=== PATIENT | male | born 1990 | race Caucasian/White ===

== ENCOUNTER 2025-03-01 13:51 | Emergency (ER) | payer OTHER, SELFPAY ==
[2025-03-01 13:55] VITALS: BP 149/100
[2025-03-01 14:24] LABS: % Basophils 0.8 % (0-2); % Eosinophils 3.2 % (0-6); % Immature Granulocytes 0.2 % (0-0.5); % Lymphocytes 30.8 % (20.5-51.1); % Monocytes 6.7 % (1.7-9.3); % Neutrophils 58.3 % (42.2-75.2); Absolute Basophils 0.1 10^3/uL (0-0.2); Absolute Eosinophils 0.3 10^3/uL (0-0.7); Absolute Lymphocytes 2.7 10^3/uL (1.2-3.4); Absolute Monocytes 0.6 10^3/uL (0.1-0.6); Hematocrit 41.7 % (39.0-52.0); Hemoglobin 14.4 g/dL (13.0-18.0); Mean Corp Hgb Conc. 34.5 g/dL (33.0-37.0); Mean Corpuscular Volume 86.9 fL (80.0-94.0); Mean Platelet Volume 9.6 fL (7.4-10.4); Nucleated Red Blood Cells % 0 % (-); Platelet Count 299 10^3/uL (130-400); Red Cell Dist. Width 12.5 % (11.5-14.5); White Blood Cell Count 8.6 10^3/uL (4.8-10.8)
[2025-03-01 14:49] LABS: ALT (SGPT) 25 U/L (0-50); AST (SGOT) 26 U/L (17-59); Albumin 4.7 g/dl (3.5-5.0); Alkaline Phosphatase 64 U/L (38-126); Blood Urea Nitrogen 21 mg/dl (9-20); Calcium 9.7 mg/dl (8.4-10.2); Carbon Dioxide 25 mmol/L (22-30); Chloride 110 mmol/L (98-107); Glucose 108 mg/dl (70-99); Potassium 4.4 mmol/L (3.5-5.1); Sodium 143 mmol/L (135-145); Total Bilirubin 1.1 mg/dl (0.2-1.3); Total Protein 7.5 g/dl (6.3-8.2); eGFR > 60.00
[2025-03-01 15:00] LABS: Troponin I < 0.012 ng/ml
--- NOTE | 2025-03-01 15:36 | ED.GENMED ---
History of Present Illness
General
Chief Complaint: Cardiac Symptoms
Source: patient
Time Seen by Provider: 03/01/25 15:19
History of Present Illness
History of Present Illness:
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 Last Monday, 8 days ago, he was laying sod described as approximately 70 pounds and heavy work. He woke on Monday with complaints of focal discomfort in
the anterior aspect of his left chest. He has taken Motrin which makes him feel somewhat better. He notes the pain is worse with deep cough, deep breath, and certain movements. He denies associated leg swelling, dyspnea, history of DVT him hit
him or family members, back pain, neck pain, abdominal pain, headache, dizziness, bleeding. He describes the pain as 'sharp'. He denies associated URI symptoms. Patient states he came in today because he read on the Internet that this could be
related to his heart and he got scared.
Past History
Past History
ED Past Medical History: None
ED Past Surgical History: None
Social History
Tobacco: Non-smoker
Alcohol: Occasional
Drug: None
Personal:
Employment: Employed
Phy Exam
Physical Exam
Physical Exam:
GENERAL: Alert , in no apparent distress
EYE: pupils equal and reactive
NECK: Supple, no significant adenopathy.
ENT: o/p clr, mmm.
CARDIAC: Regular rate and rhythm .
LUNGS: Clear breath sounds bilaterally, no acute respiratory distress, no wheezes/rales/rhonchi
ABDOMEN: Soft, without focal tenderness, no r/g, no cvat
NEUROLOGICAL: Alert and oriented, no focal neuro deficits
SKIN: Warm and dry, skin intact.
MUSCULOSKELETAL: No edema, well perfused.
PSYCH: Normal and appropriate interaction.
CHEST: focal ttp at one area approx rib 3/4 area ant chest wall left side
Course
Orders/Labs/Results
Orders:
Orders
03/01/25 13:52
EKG [Electrocardiogram (*1)] Urgent
Reason for Study: Chest Pain
EKG- Treatment ONCE
03/01/25 14:07
Complete Blood Count/With Diff Urgent
Comprehensive Metabolic Panel Urgent
Troponin I Urgent
03/01/25 15:32
Electrocardiogram (*1) Urgent
Reason for Study: Chest Pain
Cardiac Monitoring- Treatment ONCE
EKG- Treatment ONCE
Ketorolac [Toradol] 15 mg IM NOW STA
CR Chest - 2 Views Urgent
Comment:
Reason For Exam: cp
03/01/25 16:24
D-Dimer Stat
Abnormal Lab Results
03/01/25
14:07
Chloride 110 H mmol/L
(98-107)
BUN 21 H mg/dl
(9-20)
Glucose 108 H mg/dl
(70-99)
03/01/25 14:07
03/01/25 14:07
Vital Signs
Initial and Last Documented VS:
Initial Vital Signs
Temp Pulse Resp BP Pulse Ox
98.0 F 85 20 149/100 99
03/01/25 13:55 03/01/25 13:55 03/01/25 13:55 03/01/25 13:55 03/01/25 13:55
Last Documented Vital Signs
Temp Pulse Resp BP Pulse Ox
98.5 F 78 18 139/94 98
03/01/25 15:57 03/01/25 15:57 03/01/25 15:57 03/01/25 15:57 03/01/25 15:57
*Critical Care Note
Total Time (30-74mins, 75-104mins- exclusive of procedures): Not Applicable
Update Note
Update Note:
Patient presents to the Emergency Department with ___chest pain
Number and Complexity of Problems Addressed at the Encounter
� Chronic conditions affecting care:
� Acute Exacerbation and/or Progression of Chronic Illness:
� Differential Diagnosis includes: But not limited to pleurisy, ACS, PE, musculoskeletal strain, pneumothorax, etc. etc.
Amount and/or Complexity of Data to be Reviewed and Analyzed
� I performed an independent evaluation of and my interpretation is:
EKG: Read by me, normal sinus rhythm with sinus arrhythmia, no acute ischemia
CT:
Xrays: Chest x-ray read by me NAD
Laboratory Studies: Unremarkable, D-dimer normal, troponin normal
Other:
� Review of other/old records reveals:
� Clinical information was obtained by an independent historian: who is bedside
� Prescriptions/Medications Considered but not given:
� Further testing considered but not performed:
Risk of Complications and/or Morbidity or Mortality of Patient Management
� Social determinants of health affecting care:
� Discussion with other providers (PCP, Hospitalists, Consultants, etc):
� Escalation of care including admission/observation vs risk of discharge considered: Strongly suspect musculoskeletal etiology given unremarkable workup here. Discussed with patient portance of follow-up and reasons return to
the ER.
ED Attending Note
-
Portions of this chart may have been created with voice recognition software.� Occasional wrong word or��sound alike� substitutions may have occurred due to the inherent limitations of voice recognition software.
Discharge Plan
Departure
Patient Disposition: Home (Routine Discharge)
Date of Disposition: 03/01/25
Time of Disposition: 17:06
Patient with high blood pressure during this ER visit?: Yes
Condition: Good
Discharge Problem:
Chest pain
Instructions: Chest Pain (DC), BLOOD PRESSURE
Prescriptions:
No Action
No Current Medications
0
Referrals:
José Miguel Miller MD [Family Provider, Family Practice] - Next open appointment
Activity Restrictions/Additional Instructions:
IF YOU DEVELOP INCREASING OR NEW PAIN, FEVER, SHORTNESS OF BREATH, SWELLING, GET WORSE, DO NOT GET BETTER, OR OTHER WORRISOME SIGNS, PLEASE RETURN TO THE ER IMMEDIATELY!
Interventions
Interventions:
*Risk Screen - Suicide Last Done: 03/01/25 15:57
*General Assessment Last Done: 03/01/25 13:55
*Neglect/Abuse Screening Last Done: 03/01/25 15:57
*ED- Fall Risk Assessment Last Done: 03/01/25 15:57
*ED COVID-19 Vaccine History Last Done: 03/01/25 15:57
ED- Cardiac Assessment Last Done: 03/01/25 15:57
ED- Pulmonary Assessment Last Done: 03/01/25 15:57
Discharge Date and Time
Print Language: WELSH
[2025-03-01] MEDS: TORADOL 15 MG IM (15:53)
[2025-03-01 15:57] VITALS: BP 139/94; BMI 25.9
[2025-03-01 16:43] LABS: D-Dimer < 0.27 ug/mlFEU (0.00-0.50)
== END 2025-03-01 17:16 | disposition home or self-care (01) ==
LOC: EMR 13:51
PROVIDERS: Emergency Medicine; EMERGENCY PHYSICIAN Emergency Medicine; FAMILY PHYSICIAN Family Medicine
DX: R07.89 Other chest pain (principal); R03.0 Elevated blood-pressure reading, without diagnosis of hypertension
CPT/HCPCS: 99284; 96372; 71046; 80053; 84484; 85025; 85379; 93005